=== PATIENT | male | born 1995 | race Caucasian/White ===

== ENCOUNTER 2017-02-13 22:05 | Emergency (ER) | payer BC ==
[2017-02-13] MEDS ORDERED: Sodium Chloride 0.9% 1000 ML 1,000 ML IV STA (22:32)
[2017-02-13] MEDS ORDERED: Sodium Chloride 0.9% 1000 ML 1,000 ML ONE (22:40)
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
[2017-02-13 22:54] LABS: BASOPHIL % 0.3 % (0.0-0.4); Eosinophil % 0.6 % (0.00-5.0); Granulocytes % 69.6 % (36.0-66.0); Lymphocytes % 22.3 % (24.0-44.0); Mean Cell Volume 85.8 fl (78-100); Mean Platelet Volume 10.5 fl (6-9.5); Monocytes % 7.2 % (0.0-12.0); Platelet Count 287 K/mm3 (150-450); Red Blood Count 5.64 M/mm3 (4.1-5.6); Red Cell Distribution Width 12.5 % (11.5-14.0); White Blood Count 8.8 K/mm3 (4.0-10.5)
[2017-02-13 22:57] LABS: Mean Corpuscular Hemoglobin 30.6 pg (26-32)
[2017-02-13 23:16] LABS: ALBUMIN 4.6 g/dL (3.4-5.0); ALKALINE PHOSPHATASE 78 U/L (46-116); ANION GAP 10.6 MEQ/L (5-15); BLOOD UREA NITROGEN 16 mg/dL (9-20); CHLORIDE 105 mEq/L (98-107); Carbon Dioxide 29.5 mEq/L (21-32); ETHYL ALCOHOL < 0.010 % (0.00-0.01); Glucose 96 MG/DL (70-110); LIPASE 110 U/L (73-393); SGOT/AST 13 U/L (15-37); SGPT/ALT 18 U/L (12-78); SODIUM 141 mEq/L (136-145); Total Protein 7.8 gm/dL (6.4-8.2)
[2017-02-13] MEDS ORDERED: Hydromorphone 1 mg/ml Ampule IV ONE (23:44)
[2017-02-13] MEDS ORDERED: Zofran 4 MG/2 ML VIAL IV ONE (23:44)
[2017-02-13] MEDS ORDERED: Zofran 4 MG/2 ML VIAL ONE (23:48)
[2017-02-13] MEDS ORDERED: Hydromorphone 1 mg/ml Ampule ONE (23:49)
[2017-02-14 00:26] VITALS: BP 130/67; PULSE 61
[2017-02-14 00:27] VITALS: O2SAT 97
[2017-02-14] MEDS ORDERED: NORCO 5/325 MG PO ONE (00:27)
[2017-02-14] MEDS ORDERED: NORCO 5/325 MG ONE (00:33)
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
== END 2017-02-14 00:44 | disposition home or self-care (01) ==
LOC: ED 22:05
DX: S16.1XXA Strain of muscle, fascia and tendon at neck level, initial encounter (principal); S06.0X9A Concussion with loss of consciousness of unspecified duration, initial encounter; S29.9XXA Unspecified injury of thorax, initial encounter; S39.91XA Unspecified injury of abdomen, initial encounter; V86.55XA Driver of 3- or 4- wheeled all-terrain vehicle (ATV) injured in nontraffic accident, initial encounter; V87.7XXA Person injured in collision between other specified motor vehicles (traffic), initial encounter; Y92.410 Unspecified street and highway as the place of occurrence of the external cause
CPT/HCPCS: 36000; 36415; 70450; 71260; 72125; 73030; 73080; 73090; 74177; 80053; 82150; 83690; 85025; 96360; 96361; 96365; 96374; 96375; 99284; G0481; J1170; J2405; A9270-GY

== ENCOUNTER 2018-02-11 21:39 | Emergency (ER) | payer BC ==
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
[2018-02-11] MEDS ORDERED: solu-MEDROL 125 MG ONE (22:25)
[2018-02-11] MEDS: solu-MEDROL 125 MG IV ONE (22:27)
[2018-02-12 00:13] LABS: BASOPHIL % 0.5 % (0.0-0.4); Basophil (Absolute #) 0.03 (0-0.4); Eosinophil % 0.8 % (0.00-5.0); Eosinophil (Absolute #) 0.05 (0-0.5); Granulocyte Absolute (ANC) 4.07 (1.4-6.9); Granulocytes % 61.6 % (36.0-66.0); Hematocrit 46.2 % (42-50); Hemoglobin 16.1 gm/dl (12.5-18.0); Lymphocyte (Absolute #) 1.86 (1.0-4.6); Lymphocytes % 28.2 % (24.0-44.0); Mean Cell Volume 87.7 fl (78-100); Mean Corpuscular Hemoglobin 30.6 pg (26-32); Mean Corpuscular Hgb Concent. 34.8 g/dl (32-36); Mean Platelet Volume 11.1 fl (6-9.5); Monocyte (Absolute #) 0.59 (0.0-1.3); Monocytes % 8.9 % (0.0-12.0); Platelet Count 293 K/mm3 (150-450); Red Blood Count 5.27 M/mm3 (4.1-5.6); Red Cell Distribution Width 12.7 % (11.5-14.0); White Blood Count 6.6 K/mm3 (4.0-10.5)
[2018-02-12 00:57] LABS: ALBUMIN 4.5 g/dL (3.5-5.0); ALKALINE PHOSPHATASE 61 U/L (38-126); ANION GAP 16.9 MEQ/L (5-15); BLOOD UREA NITROGEN 12 mg/dL (9-20); CHLORIDE 101 mmol/L (98-107); Calcium 9.1 mg/dL (8.4-10.2); Carbon Dioxide 28 mmol/L (22-30); Creatinine 1 1.19 mg/dL (0.66-1.25); Glucose 96 mg/dL (74-106); NT PRO BNP < 11.1 pg/mL (0-450); SGOT/AST 19 U/L (17-59); SGPT/ALT 15 U/L (0-50); SODIUM 142 mmol/L (137-145)
[2018-02-12 02:04] VITALS: BP 133/65; PULSE 63; O2SAT 96
--- NOTE | 2018-02-12 08:44 | XRAY ---
Indication: Short of breath. Comparison: December 12, 2013. Portable chest again demonstrates normal heart, lungs, and bony thorax.
== END 2018-02-12 02:08 | disposition home or self-care (01) ==
LOC: ED 21:39
DX: R06.02 Shortness of breath (principal); R07.1 Chest pain on breathing; G47.00 Insomnia, unspecified
CPT/HCPCS: 36000; 36415; 71045; 80053; 83880; 85025; 85379; 93005; 93041; 96374; 99284; J2930

== ENCOUNTER 2018-06-24 08:25 | Emergency (ER) | payer BC ==
[2018-06-24 08:56] VITALS: O2SAT 98
--- NOTE | 2018-06-24 09:33 | ERPHSYRPT ---
- History of Present Illness Time Seen by Provider: 06/24/18 09:24 Source: patient, family (mom) Exam Limitations: no limitations Patient Subjective Stated Complaint: fever, dizzy, pain--septoplasty 2 days ago Triage Nursing Assessment: Pt c/o of dizziness, pain, and a low grade fever yesterday, septoplasty done 2 days ago, reports a lot of bleeding and severe pain, rates pain 10/10, BP 173/102, no bleeding at this time, appears to be uncomfortable Physician History: The patient is a 23-year-old male with his mother status post septoplasty 2 days ago complaining of pain in his nose and not being able to sleep. He was given hydrocodone 7.5 mg to take. He states when he takes it, it makes him nauseated and dizzy. He states he will not take it anymore. The mother called the ENT doctor who has called in a prescription for Zofran. They have not been able to turkey picker the Zofran yet today. He has not taken anything for pain today. He has dried blood in both nostrils. He has taken some Tylenol without relief. Timing/Duration: gradual onset, days (2) Severity: moderate ENT Location: nose Prearrival Treatment: over the counter meds, prescription meds Modifying Factors: Improves With: nothing Associated Symptoms: nasal congestion/drainage Allergies/Adverse Reactions: zolpidem [From Ambien] Adverse Reaction (Verified 06/24/18 08:56) Home Medications: Hydrocodone/Acetaminophen [Hydrocodone-Acetamin 7.5-325] 1 tab PO Q6H PRN [History] Hx Tetanus, Diphtheria Vaccination/Date Given: Yes Hx Influenza Vaccination/Date Given: No Hx Pneumococcal Vaccination/Date Given: No - Review of Systems Constitutional: No Fever, No Chills Eyes: No Symptoms Ears, Nose, & Throat: Nose Pain Respiratory: No Cough, No Dyspnea Cardiac: No Chest Pain, No Edema, No Syncope Abdominal/Gastrointestinal: No Abdominal Pain, No Nausea, No Vomiting, No Diarrhea Genitourinary Symptoms: No Dysuria Musculoskeletal: No Back Pain, No Neck Pain Skin: No Rash Neurological: No Dizziness, No Focal Weakness, No Sensory Changes Psychological: No Symptoms Endocrine: No Symptoms Hematologic/Lymphatic: No Symptoms Immunological/Allergic: No Symptoms All Other Systems: Reviewed and Negative - Past Medical History Pertinent Past Medical History: No Neurological History: No Pertinent History ENT History: Other Cardiac History: No Pertinent History Respiratory History: No Pertinent History Endocrine Medical History: No Pertinent History Musculoskeletal History: Fractures GI Medical History: No Pertinent History History: No Pertinent History Psycho-Social History: No Pertinent History Male Reproductive Disorders: No Pertinent History Other Medical History: HX OF ANKLE SPRAINS TO BILAT ANKLES. LACERATION TO RIGHT ELBOW - Past Surgical History Past Surgical History: Yes Neuro Surgical History: No Pertinent History Cardiac: No Pertinent History Respiratory: No Pertinent History Gastrointestinal: No Pertinent History Genitourinary: No Pertinent History Musculoskeletal: Orthopedic Surgery Male Surgical History: No Pertinent History Other Surgical History: I&D, left elbow, septoplasty - Social History Smoking Status: Never smoker Exposure to second hand smoke: No Drug Use: none Patient Lives Alone: Yes - Nursing Vital Signs Nursing Vital Signs: Initial Vital Signs Temperature 98.5 F 06/24/18 08:45 Pulse Rate 72 06/24/18 08:45 Blood Pressure 173/102 06/24/18 08:45 O2 Sat by Pulse Oximetry 98 06/24/18 08:45 Pain Scale Pain Intensity 10 - Physical Exam General Appearance: moderate distress Eye Exam: bilateral eye: normal inspection Ear Exam: bilateral ear: auricle normal Nasal Exam: dried blood (normal post-septoplasty condition with packing and dried blood in bilateral nares.) Throat Exam: pharynx normal, moist mucus membranes, No tonsillar exudate Neck Exam: supple Cardiovascular/Respiratory Exam: normal breath sounds, regular rate/rhythm Abdominal Exam: non-tender, soft Neurologic Exam: alert, oriented x 3, sensation nml, No motor deficits Skin Exam: normal color, warm, dry SpO2 Interpretation: normal SpO2: 98 O2 Delivery: Room Air - Departure Time of Disposition: 09:37 Departure Disposition: Home Clinical Impression: Nasal pain Condition: Stable Critical Care Time: No Referrals: CLAIRE FISHER [Primary Care Provider] - Additional Instructions: You have pain due to a recent surgery on your nose. You were given Toradol 60 mg by IM in the ER. You have a prescription now for Phenergan 25 mg every 8 hours as needed for nausea. You may continue to try to take the hydrocodone with the Phenergan. If you do not want to take the hydrocodone, take tramadol 50-100 mg every 4-6 hours. You may take the Phenergan 25 mg every 8 hours as needed as well for sleep. Follow-up with your ENT if the problem continues. Prescriptions: Promethazine HCl 25 mg [Phenergan 25 mg] 25 mg PO Q8H PRN PRN #12 tablet PRN Reason: Nausea/Vomiting Tramadol HCl 50 mg [Ultram 50 mg] 50 mg PO Q4-6HPRN PRN #12 tablet PRN Reason: Pain
[2018-06-24] MEDS ORDERED: TORAdol 30 mg Injection IM ONE (09:38)
[2018-06-24] MEDS ORDERED: TORAdol 30 mg Injection ONE (09:49)
[2018-06-24 10:04] VITALS: BP 173/105; PULSE 75
== END 2018-06-24 10:12 | disposition home or self-care (01) ==
LOC: ED 08:25
DX: J34.89 Other specified disorders of nose and nasal sinuses (principal); R42 Dizziness and giddiness
CPT/HCPCS: 96372; 99283; J1885